=== PATIENT | male | born 1980 | race Caucasian/White ===

== ENCOUNTER 2017-03-08 03:54 | Emergency (ER) | payer BC, OTHER ==
[~2017-03-08] VITALS: Ht 175.3 cm; Wt 76.2 kg
[2017-03-08 03:59] VITALS: Ht 175.3 cm; Wt 76.2 kg
[2017-03-08] MEDS ORDERED: AMOX500T PO (04:12)
[2017-03-08] MEDS ORDERED: CIPRO 0.2%/HYDROCORTISONE 1% OTIC SUSP 10 ML BTL OT SCH (04:15)
[2017-03-08 04:40] VITALS: BP 118/78; PULSE 87; O2SAT 98
--- NOTE | 2017-03-08 04:51 | EMERGENCY ROOM VISIT NOTE ---
History First contact with patient: 04:03 Chief Complaint: EAR PAIN Stated Complaint: EAR INFECTION History of Present Illness The patient is a 36 year old male who presents to the Emergency Room with complaints of right ear infection for the past 2 days. The patient went to an urgent care clinic at the onset of symptoms and was given a prescription for Augmentin. He has been taking this as prescribed, but states that his symptoms worsened tonight. He has not been able to sleep because of his discomfort. He has a white/yellow drainage coming from the ear. He has not had fever or chills , but has been taking ibuprofen and Tylenol at home without significant improvement of symptoms. The patient rates his overall discomfort a 6/10. Review of Systems More than 10 systems were reviewed and otherwise negative with the exception of history of present illness. Past Medical/Surgical History Medical Problems: (1) No Known Active Medical Problems Family History No pertinent family history Social History Smoking Status: Never Smoker Housing Status: lives with family Occupation Status: employed Current/Historical Medications Scheduled Amoxicillin & Pot Clavulanate (Augmentin 500MG), 875 MG PO DIRECTED Physical Exam Vital Signs Date Time Temp Pulse Resp B/P (MAP) Pulse Ox O2 Delivery O2 Flow Rate FiO2 03/08/17 04:40 87 18 118/78 98 03/08/17 03:59 77 18 117/77 98 Room Air Pain Rating (0-10): 0 Physical Exam VITALS: Vitals are noted on the nurse's note and reviewed by myself. Vital signs stable. GENERAL: Well-developed, well-nourished, white male, who is in no acute distress and resting comfortably. Patient is cooperative with the examination. HEAD: Normocephalic atraumatic. EARS: External ear normal. No mastoid tenderness. Left canal and TM appears normal. Right canal is erythematous with whitish drainage and debris in the canal. Right TM is nonvisualized EYES: Pupils equal round and reactive to light and accommodation. Conjunctivae without injection, sclerae without icterus. Extraocular movements intact. NOSE: Patent, turbinates without inflammation or discharge. MOUTH: Mucous membranes moist. Tonsils are not enlarged. Pharynx without erythema, blood, or exudate. Uvula midline. Airway patent. NECK: Supple without nuchal rigidity. No lymphadenopathy. No thyromegaly. Cervical spine is nontender. HEART: Regular rate and rhythm without murmurs gallops or rubs. LUNGS: Clear to auscultation bilaterally without wheezes, rales or rhonchi. No retractions or accessory muscle use. Medical Decision & Procedures ED Course Physical exam and history were performed. Nursing notes, EMR, and Medication List were personally reviewed. Patient appears to have a right otitis externa on examination. The TM was not visualized in this ear. Because of this an ear wick was placed and initial Cipro HC drops were placed. The patient was given a course of this medication to use at home. He is currently on Augmentin for presumed otitis media, and should finish his prescription as prescribed. The patient will need to follow with his PCP for a recheck and was otherwise invited back to the ER with any new , worsening, or concerning symptoms. The chart was completed utilizing [employer] Speech Voice Recognition Software. Grammatical errors, random word insertions, pronoun errors, and incomplete sentences are an occasional consequence of this system due to software limitations, ambient noise, and hardware issues. Any formal questions or concerns about the content, text, or information contained within the body of this dictation should be directly addressed to the provider for clarification. . Medical Decision Differential diagnosis: Etiologies such as viral syndrome, otitis, pharyngitis, pneumonia, influenza, meningitis, urinary tract infection, sepsis, bacteremia, as well as others were entertained. Impression Primary Impression: Right otitis externa Departure Information Dispostion Home / Self-Care Condition GOOD Forms HOME CARE DOCUMENTATION FORM, IMPORTANT VISIT INFORMATION Patient Instructions My [facility] Additional Instructions You were seen and evaluated today on an emergency basis only. This is not a substitute for, or an effort to provide, complete comprehensive medical care. It is not possible to recognize and treat all injuries or illnesses in a single emergency department visit. For this reason it is recommended that you followup with your primary care physician with any ongoing or persistent symptoms. Continue to use your eardrops (Cipro HC): 2 drops in the affected ear twice daily for 7 days For baseline pain relief you may alternate ibuprofen and acetaminophen every 4 hours for pain control. Take 600 mg ibuprofen (Advil) and then 4 hours later take 1000 mg acetaminophen (Tylenol). Do not take more than 3000 mg acetaminophen in a single day. Continue your Augmentin as previously prescribed. You are welcome to return to the emergency department anytime with new, worsening, or concerning symptoms.
== END 2017-03-08 04:42 | disposition home or self-care (01) ==
LOC: C.EDB 03:55
DX: H60.91 Unspecified otitis externa, right ear (principal)

== ENCOUNTER → 2017-07-26 | Day surgery (SDC) | payer BC ==
[2017-07-03 08:00] VITALS: Ht 175.3 cm; Wt 75.0 kg
--- NOTE | 2017-07-25 12:40 | History and Physical: Surg Cnt ---
History & Physical Date Jul 25, 2017. Chief Complaint nasal obstruction and left ear infection and hearing loss, perforation of right ear, adenoid hypertrophy History of Present Illness The patient is a 37 year old male with complaints of deviated septum, left otitis media with effusion, perforation of right ear, adenoid hypertrophy Past Medical/Surgical History Medical Problems: (1) No Known Active Medical Problems Additional History Hepatic Disease: No Endocrine Disorder: No Kidney Disease: No Hypertension: No Heart Disease: No Bleeding Tendencies: No Infectious Diseases: No Allergies Coded Allergies: No Known Allergies (Unverified , 07/03/17) Home Medications No Active Prescriptions or Reported Meds Physical Examination Skin: warm/dry, no rash Eyes: normal inspection, EOMI, sclerae normal ENT: + pertinent finding (septal deviation to left, adenoid hypertrophy, fluid left ear, perforation right ear) Diagnosis septal deviation, chronic otitis media left, adenoid hypertrophy Plan of Treatment septoplasty, Celon turbinates, adenoidectomy, left PE tube
[~2017-07-26] VITALS: Ht 175.3 cm; Wt 75.0 kg
[~2017-07-26] MED LIST: ATROPINE SULFATE 0.1 MG/ML 5ML SYR IV PRN; BACITRACIN OINT 15 GM TUBE ONE; CEFAZOLIN 1000MG IV PUSH 5 ML IV SCH; DEXAMETHASONE SOD INJ 4 MG/ML VIAL ONE; EpINEphrine INJ 1MG/ML AMP 1 MG/ML AMP ONE; FENTANYL CITRATE INJ 50 MCG/1 ML 2 ML VIAL IV PRN; FENTANYL CITRATE INJ 50 MCG/1 ML 2 ML VIAL ONE; GELATIN SPONGE 12-7MM ONE; HYDR-5688 PO; HYDROCODONE/ACETAMOPHEN 5/325MG TAB ONE; HYDROCODONE/ACETAMOPHEN 5/325MG TAB PO PRN; KETOROLAC TROMETHAMINE 30 MG/ML VIAL IV. PRN; LACTATED RINGER'S 1000ML 1,000 ML IV SCH; LIDO 2%/EPINEPHRINE 1:100000 20 ML VIAL INFIL ONE; LIDOCAINE 4% MPF SOAK 5 ML = 1 DOSE TOP ONE; LIDOCAINE HCL 2% 2 ML VIAL (20MG/ML) ONE; MIDAZOLAM HCL 1 MG/ML 2ML VIAL ONE; OFLOXACIN 0.3% OP SOLN 5 ML BTL ONE; ONDANSETRON INJ 2 MG/ML 2 ML VIAL IV PRN; ONDANSETRON INJ 2 MG/ML 2 ML VIAL ONE; PROPOFOL IV EMULSION 10 MG/ML 20 ML VIAL IV ONE; SODIUM CHLORIDE 0.9% 1000ML 1,000 ML IV SCH; TETRACAINE HCL (OPHTH) 60 DROPS/4 ML BTL OP ONE
--- NOTE | 2017-07-26 08:51 | History & Physical Bridge Note ---
H&P Re-Evaluation Bridge Note: I have examined the patient, reviewed the History & Physical and in the interval since the performance of the History & Physical I have noted the following changes of clinical significance: No changes noted
--- NOTE | 2017-07-26 08:53 | Discharge Instructions-SurgCtr ---
Discharge Instructions Date of Service Jul 26, 2017. Visit Reason for Visit: Septal Deviation, Chronic O.m., Left Discharge Discharge Diagnosis / Problem: same Discharge Goals Goal(s): Improve function Activity Recommendations Activity Limitations: resume your previous activity Anesthesia . Post Anesthesia Instructions: If you have had General Anesthesia or IV Sedation: * Do not drive today. * Resume driving when surgeon permits. * Do not make important decisions or sign legal documents today. * Call surgeon for: 1. Temperature elevations greater than 101 degrees F. 2. Uncontrollable pain. 3. Excessive bleeding. 4. Persistent nausea and vomiting. 5. Medication intolerance (nausea, vomiting or rash). * For nausea and vomiting use only clear liquids such as: tea, soda, bouillon until nausea subsides, then gradually increase diet as tolerated. * If you have any concerns or questions, call your surgeon's office. If physician is unavailable and it is an emergency, call 911 or go to the nearest emergency room. . Instructions / Follow-Up Instructions / Follow-Up ACTIVITY RECOMMENDATIONS: * During the first few days, activities should be limited. * After 48 hours, activity can gradually be increased to normal activity. MEDICATIONS: Continue any other previous medications unless otherwise indicated by you surgeon. * Avoid aspirin or aspirin containing products, e.g. as they may increase bleeding. DIET: * No diet restrictions. * Fluids are very important and should be encouraged to maintain adequate hydration. RETURN TO SCHOOL/WORK: * Return to school or work in one week. * No physical education for one week. SPECIAL CARE INSTRUCTIONS: * Notify the doctor if bleeding occurs, vomiting, temperature greater than 101 degrees Fahrenheit. * Call or cell phone . If unable to reach the doctor, go to the nearest Emergency Department. FOLLOW UP VISIT: Follow-up visit with Dr. Munoz in 2 weeks. Please call to schedule if not already scheduled.ACTIVITY RECOMMENDATIONS: * Being up and around is good, but no strenuous activity, heavy lifting or physical exertion for one week. * Keep your head elevated 30 degrees when lying down or sleeping. * Do not blow your nose for 48 hours, sniff back instead. * Avoid hot showers. OVER THE COUNTER MEDICATIONS: * You may use Tylenol * Avoid aspirin or aspirin containing products, e.g. as they may increase bleeding. SPECIAL CARE INSTRUCTIONS: * Expect to have bloody drainage from your nose and/or down your throat for one to three days. Change drip pad as needed. * Begin irrigating your nose with saline solution today, at least six to ten times per day and sniff back to help remove old clots or crust. * You may experience nasal and facial congestion, pain and pressure, this is normal. * Please call with any significant and/or progressive pain, redness, swelling around the eyes, visual changes, fever of 101.5 degrees F, active bleeding or any problems or concerns. * If active bleeding occurs, spray the nose three times at one minute intervals with Afrin spray and call or cell phone: . If unable to reach the doctor, go to the nearest Emergency Department. Special Diet: * Avoid extremely hot fluids. FOLLOW UP VISIT: Follow-up Visit with Dr. Munoz If not already scheduled, please call to schedule.ACTIVITY RECOMMENDATIONS: * Take it easy today. * Return to regular activity tomorrow. OVER THE COUNTER MEDICATIONS: * You may use Tylenol for pain * Avoid aspirin or aspirin containing products, e.g. as they may increase bleeding. DIET: Resume previous diet RETURN TO SCHOOL/WORK: May return to normal activities tomorrow. SPECIAL CARE INSTRUCTIONS: * Drainage is not unusual during the first few days after placement of tubes. The drainage may be bloody. If it is foul smelling or very thick, please notify the doctor. Call or cell phone . * Keep water out of the ears when shampooing or bathing. Use cotton balls covered with Vaseline or "Macks" ear plugs. * Call physician if increased pain, fever over 101 degrees F. or any problems. FOLLOW UP VISIT: Follow-up Visit with Dr. Munoz in 2 weeks. Please call to schedule. Diet Recommendations Home Diet: no limitations Pending Studies Studies pending at discharge: no Medical Emergencies . Who to Call and When: Medical Emergencies: If at any time you feel your situation is an emergency, please call 911 immediately. . Non-Emergent Contact Non-Emergency issues call your: Primary Care Provider . . "Provider Documentation" section prepared by Kiarra PEREZ Drug Monitoring Program Search Results: no issues identified
[2017-07-26 11:14] VITALS: TEMP 36.5
--- NOTE | 2017-07-26 11:19 | OPERATIVE REPORT ---
DATE OF OPERATION: 07/26/2017 PREOPERATIVE DIAGNOSES: Septal deviation, chronic otitis media of the left ear and perforation of the right ear and adenoid hypertrophy. POSTOPERATIVE DIAGNOSIS: Same. PROCEDURE: Septoplasty, radiofrequency volume reduction of the turbinates, adenoidectomy and left PE tube insertion. SURGEON: Kiarra Munoz MD. ANESTHESIA: General LMA. COMPLICATIONS: None. BLOOD LOSS: 25 mL. HISTORY: This 37-year-old gentleman has had persistent hearing loss, persistent effusion of the left ear. He also has septal deviation to the left and was found to have adenoid hypertrophy on endoscopy blocking the eustachian tube. DESCRIPTION OF PROCEDURE: The patient was brought to the operating room and placed in supine position. General anesthesia was induced using LMA, prepped, draped in usual sterile manner. The left ear was visualized, irrigated with peroxide and cleaned of cerumen. Myringotomy incision was made inferiorly. Thick fluid evacuated from the middle ear space and a Paparella tube was inserted. Adenoidectomy was performed using the Coblator. This was done endoscopically using the 0 degree scope visualizing the nasopharynx and using the coblation device with the setting at 7 to coblate out the adenoids. Hemostasis was controlled using the coblation device. At this point, endoscopic septoplasty was performed. The nose was decongested using topical cottonoids with a solution of 4 mL of 4% Xylocaine mixed with 1 mL of epinephrine and injection of 2% Xylocaine, 1:1,000 strength epinephrine was also used. The inferior turbinates were treated with radiofrequency volume reduction using the Celon probe. Four lesions were created in each inferior turbinate with the setting at 18. The septum was deviated to the left with a large bony cartilaginous spur. The incision was made over the spur using the 15 blade. Superior inferior tunnels were elevated, bilateral posterior tunnels were elevated, the bone spur was isolated, fractured and then removed along with the cartilaginous spur projecting to the left which was resected using the 15 blade, the caudal dissector and the Cassandra forceps. Mucoperichondrium was packed back in position with a single piece of Gelfoam on the left side. The patient tolerated the procedure well and was taken to recovery area in satisfactory condition. I attest to the content of the Intraoperative Record and any orders documented therein. Any exception s are noted below.
--- NOTE | 2017-07-26 11:57 | Anesthesia Progress Nt - [facility] ---
Anesthesia Post Op Note Date & Time Jul 26, 2017 at 11:56 Vital Signs Vital Signs Past 12 Hours Date Time Temp Pulse Resp B/P (MAP) Pulse Ox O2 Delivery O2 Flow Rate FiO2 07/26/17 11:16 85 11 97 07/26/17 11:16 84 11 07/26/17 11:15 144/97 07/26/17 11:14 36.5 84 16 144/97 97 Room Air 07/26/17 11:11 79 17 97 07/26/17 11:11 80 17 07/26/17 11:10 138/107 07/26/17 11:06 82 07/26/17 11:06 82 98 07/26/17 11:05 134/94 07/26/17 11:01 83 14 100 07/26/17 11:01 85 14 07/26/17 11:00 135/93 07/26/17 10:56 88 20 07/26/17 10:56 87 20 99 07/26/17 10:55 136/83 07/26/17 10:53 136/80 07/26/17 10:51 97 95 07/26/17 10:51 36.8 86 16 136/80 100 Humidified Oxygen 8 07/26/17 10:51 97 07/26/17 08:40 36.4 77 16 111/56 (74) 98 Room Air Notes Mental Status: alert / awake / arousable, participated in evaluation Pt Amnestic to Procedure: Yes Nausea / Vomiting: adequately controlled Pain: adequately controlled Airway Patency, RR, SpO2: stable & adequate BP & HR: stable & adequate Hydration State: stable & adequate Anesthetic Complications: no major complications apparent
[2017-07-26 11:59] VITALS: BP 130/40; PULSE 83; O2SAT 97
== END | disposition home or self-care (01) ==
LOC: X.SURG 08:30
PROVIDERS: ATTEND Otolaryngology
DX: J34.2 Deviated nasal septum (principal); H66.92 Otitis media, unspecified, left ear; J35.2 Hypertrophy of adenoids; H72.92 Unspecified perforation of tympanic membrane, left ear

== ENCOUNTER 2022-12-28 14:17 | Inpatient (IN) ==
[2022-12-28] MEDS ORDERED: ONDANSETRON INJ 2 MG/ML 2 ML VIAL IV STA ×2 (14:42→16:40)
[2022-12-28] MEDS ORDERED: KETOROLAC TROMETHAMINE 15 MG/ML VIAL IV STA (14:42)
[2022-12-28] MEDS ORDERED: SODIUM CHLORIDE 0.9% 1000ML 1,000 ML IV ONE ×2 (14:42→16:25)
[2022-12-28 15:01] LABS: Appearance Urine Clear (Clear); Bacteria Urine Automated Negative (Negative); Bilirubin Urine 1+ (Negative); Blood Urine 1+ (Negative); Color Urine Dark Yellow; Epithelial Cell Urine Auto 20-30 /lpf (0-5); Glucose Urine UA Negative (Negative); Ketones Urine 1+ (Negative); Leukocyte Esterase Urine Negative (Negative); Nitrite Urine Negative (Negative); Protein Urine 1+ (Negative); RBC Urine Automated 0-4 /hpf (0-4); Specific Gravity Urine > 1.045 (1.000-1.030); Urobilinogen Urine Negative (Negative)
--- NOTE | 2022-12-28 15:02 | Emergency Department Note ---
Impression & Plan Right flank pain, Calculus of distal right ureter, Hydronephrosis, Intractable back pain ED Provider Note CHIEF COMPLAINT: Right-sided back pain HISTORY OF PRESENT ILLNESS: This 42-year-old male patient presents to the emergency department via private vehicle for evaluation of right-sided back pain. This came on approximately 4 hours prior to arrival. The patient states this came on suddenly while he was at work. He thought his symptoms may have been a pulled muscle at first, so took some ibuprofen but the pain has been progressively worsening. He states now, he feels that he is urinating frequently but not very much. He denies any fever. There is some intermittent nausea associated with the pain. No vomiting. No dysuria or hematuria. No recent illness. No diarrhea or constipation patient denies history of similar symptoms. REVIEW OF SYSTEMS: A 10 system review of systems was performed with positives and pertinent negatives listed in the history of present illness. All other systems were reviewed and are negative. ALLERGIES: None PHYSICAL EXAM: VITALS: Vitals are noted on the nurse's note and reviewed by myself. Vital signs stable. GENERAL: This is a 42-year-old, in no acute distress, nondiaphoretic, well- developed well-nourished. SKIN: The skin was without rashes, erythema, edema, or bruising. There is no tenting of the skin. Capillary refill less than 2 seconds. HEAD: Normocephalic atraumatic. EYES: Conjunctivae without injection, sclerae without icterus. MOUTH: Mucous membranes moist. NECK: Supple without nuchal rigidity. No lymphadenopathy. No JVD. HEART: Regular rate and rhythm without murmurs gallops or rubs. LUNGS: Clear to auscultation bilaterally without wheezes, rales or rhonchi. No retractions or accessory muscle use. ABDOMEN: Positive bowel sounds x 4. Soft, nontender, without masses or organomegaly. Lou sign negative. No guarding or rebound tenderness. Right CVA tenderness MUSCULOSKELETAL: No muscle atrophy, erythema, or edema noted. Full range of motion without joint tenderness in all extremities. No tenderness to palpation. Normal gait. Strength 5/5 throughout. NEURO: Patient was alert and oriented to person place and time. No focal neurological deficits. An order was placed for continuous electronic device monitor. The monitor showed a normal sinus rhythm at a ventricular rate of 96 bpm, per my interpretation. EMERGENCY DEPARTMENT COURSE: The patient was seen and evaluated as above. IV access obtained, labs drawn. Pt. medicated with IV fluids, toradol, zofran. CT imaging performed and shows 2cm distal ureteral stone with hydronephrosis on the right side, per my interpretation. Pt. continued to c/o severe pain and was medicated with IV acetaminophen. He continued to c/o intractable pain, noting no improvement with the previous medications, and was medicated with 4mg Morphine and Zofran, followed by 6mg Morphine about an hour later. Pt. did desat to 88% after this dose of pain medication and was placed on 2L o2 via NC. Pt. re- evaluated and notes pain is more manageable, but continuing to experience nausea and vomiting. He does not feel he will be able to manage his symptoms as an outpatient and will prefer to stay in the hospital. I discussed the case with my attending physician. I discussed the case with the authorization manager. I discussed the case with Dr. Perdomo, [facility] hospitalist cork insulation setter. He did agree to see and evaluate the patient for admission. Please see hospitalist dictation regarding ongoing management and care of this patient. Differential diagnosis includes musculoskeletal, renal colic, UTI, appendicitis, diverticulitis, mesenteric ischemia, aortic pathology, infections, inflammatory bowel disease, PUD, biliary pathology, as well as other pathologies. I attest that I have personally reviewed the patient's current medication list. Patient was found to have normal blood pressure on screening and does not require follow-up. The chart was completed utilizing [employer] Speech voice recognition software. Grammatical errors, random word insertions, pronoun errors, and incomplete sentences are an occasional consequence of this system due to software limitations, ambient noise, and hardware issues. Any formal questions or concerns about the content, text, or information contained within the body of this dictation should be directly addressed to the provider for clarification. Past Med/Surg History Medical History No pertinent past medical history Surgical History Hx of tympanostomy Family History Grandfather Colorectal cancer Social History Smoking Status: Never smoker Hx Alcohol Use: No Hx Substance Use: No Preferred Language: Wallisian Feels Safe at Home: Yes Allergies Allergies Allergy/AdvReac Type Severity Reaction Status Date / Time No Known Allergies Allergy Verified 12/28/22 16:20 Home Meds Home Medications Medication Instructions Recorded Confirmed ibuprofen 200 mg tablet (Advil) 400 mg PO DIRECTED PRN 12/28/22 12/28/22 PAIN/FEVER Results & Data (ED) Vital Signs Vital Signs - 24 hr 12/28/22 14:21 12/28/22 16:47 12/28/22 16:47 Temperature 36.5 C Temperature Source Temporal Artery Scan Pulse Rate 83 Pulse Rate [Finger] 87 Pulse Rate from SpO2 Sensor Respiratory Rate 18 20 Respiratory Effort / Characteristics Non-Labored Non-Labored Spontaneous Respiratory Depth Normal Normal Respiratory Pattern Regular Regular Blood Pressure 130/75 Blood Pressure [Left Arm] 106/83 Blood Pressure Mean 93 Blood Pressure Mean [Left Arm] 90 Pulse Oximetry 99 100 100 Oxygen Delivery Method Room Air Room Air Room Air Oxygen Flow Rate Sepsis Recent Fever Within 48 Hours No Sepsis New/Unexplained Change in Mental Status N/A Sepsis Action Taken by Nursing No Action Required 12/28/22 17:38 12/28/22 18:03 12/28/22 18:02 Temperature Temperature Source Pulse Rate 87 87 Pulse Rate [Finger] 87 Pulse Rate from SpO2 Sensor 86 Respiratory Rate 18 11 L Respiratory Effort / Characteristics Respiratory Depth Normal Respiratory Pattern Blood Pressure Blood Pressure [Left Arm] 126/79 Blood Pressure Mean Blood Pressure Mean [Left Arm] 94 Pulse Oximetry 96 87 L Oxygen Delivery Method Room Air Oxygen Flow Rate Sepsis Recent Fever Within 48 Hours Sepsis New/Unexplained Change in Mental Status Sepsis Action Taken by Nursing 12/28/22 18:10 12/28/22 18:20 12/28/22 18:30 Temperature Temperature Source Pulse Rate 72 96 H Pulse Rate [Finger] Pulse Rate from SpO2 Sensor 70 92 H Respiratory Rate 9 L 22 Respiratory Effort / Characteristics Respiratory Depth Respiratory Pattern Blood Pressure 108/57 L Blood Pressure [Left Arm] Blood Pressure Mean 74 Blood Pressure Mean [Left Arm] Pulse Oximetry 98 97 Oxygen Delivery Method Nasal Cannula Oxygen Flow Rate 2 Sepsis Recent Fever Within 48 Hours Sepsis New/Unexplained Change in Mental Status Sepsis Action Taken by Nursing 12/28/22 18:30 12/28/22 18:40 12/28/22 18:50 Temperature Temperature Source Pulse Rate 93 H 92 H 89 Pulse Rate [Finger] Pulse Rate from SpO2 Sensor 97 H 92 H 88 Respiratory Rate 12 17 16 Respiratory Effort / Characteristics Respiratory Depth Respiratory Pattern Blood Pressure Blood Pressure [Left Arm] Blood Pressure Mean Blood Pressure Mean [Left Arm] Pulse Oximetry 99 97 98 Oxygen Delivery Method Oxygen Flow Rate Sepsis Recent Fever Within 48 Hours Sepsis New/Unexplained Change in Mental Status Sepsis Action Taken by Nursing 12/28/22 19:00 12/28/22 19:00 12/28/22 19:10 Temperature Temperature Source Pulse Rate 98 H 86 Pulse Rate [Finger] Pulse Rate from SpO2 Sensor 95 H 86 Respiratory Rate 20 14 Respiratory Effort / Characteristics Respiratory Depth Respiratory Pattern Blood Pressure 130/80 Blood Pressure [Left Arm] Blood Pressure Mean 96 Blood Pressure Mean [Left Arm] Pulse Oximetry 99 96 Oxygen Delivery Method Oxygen Flow Rate Sepsis Recent Fever Within 48 Hours Sepsis New/Unexplained Change in Mental Status Sepsis Action Taken by Nursing 12/28/22 19:20 12/28/22 19:30 12/28/22 19:40 Temperature Temperature Source Pulse Rate 91 H 90 96 H Pulse Rate [Finger] Pulse Rate from SpO2 Sensor 92 H 89 94 H Respiratory Rate 17 14 16 Respiratory Effort / Characteristics Respiratory Depth Respiratory Pattern Blood Pressure Blood Pressure [Left Arm] Blood Pressure Mean Blood Pressure Mean [Left Arm] Pulse Oximetry 99 98 99 Oxygen Delivery Method Room Air Oxygen Flow Rate Sepsis Recent Fever Within 48 Hours Sepsis New/Unexplained Change in Mental Status Sepsis Action Taken by Nursing Laboratory Data 12/28/22 14:35 12/28/22 14:35 Lab Results 12/28/22 12/28/22 12/28/22 Range/Units 14:30 14:35 14:35 WBC 9.70 (4.8-10.8) K/ul RBC 5.03 (4.70-6.10) M/uL Hgb 15.2 (14.0-18.0) g/dl Hct 43.0 (42.0-52.0) % MCV 85.5 (80.0-100.0) fL MCH 30.2 (25.0-34.0) pg MCHC 35.3 (32.0-36.0) g/dL RDW Std Deviation 39.1 (36.4-46.3) fL RDW Coeff of Leeanne 12.6 (11.5-14.5) % Plt Count 317 (130-400) K/uL MPV 12.1 (9.4-12.4) fL Immature Gran % (Auto) 0.4 % Neut % (Auto) 57.3 % Lymph % (Auto) 28.9 % Eddy % (Auto) 9.9 % Eos % (Auto) 2.8 % Baso % (Auto) 0.7 % Neut # (Auto) 5.56 (1.40-6.50) K/uL Lymph # (Auto) 2.80 (1.2-3.4) K/uL Eddy # (Auto) 0.96 H (0.11-0.59) K/uL Eos # (Auto) 0.27 (0-0.50) K/uL Baso # (Auto) 0.07 (0-0.2) K/uL Immature Gran # (Auto) 0.04 (0.01-0.20) K/uL Sodium 140 (136-145) mmol/L Potassium 4.0 (3.5-5.1) mmol/L Chloride 107 (98-107) mmol/L Carbon Dioxide 23 (21-32) mmol/L Anion Gap 10 (3-11) BUN 22 (6-23) mg/dl Creatinine 1.19 (0.6-1.4) mg/dl Est Cr Clr Drug Dosing 78.4 ml/min Est GFR ( Amer) 88.0 ml/min Est GFR (Non-Af Amer) 76.0 ml/min BUN/Creatinine Ratio 18.5 (10-20) Glucose 101 H (70-99(Fasting)) mg/dl Calcium 9.7 (8.6-10.3) mg/dl Total Bilirubin 1.8 H (0.2-1.0) mg/dl AST 24 (13-39) U/L ALT 31 (7-52) U/L Alkaline Phosphatase 79 (34-104) U/L Total Protein 7.7 (6.0-8.3) gm/dl Albumin 5.0 (3.4-5.0) gm/dl Globulin 2.7 (2.5-4.0) gm/dl Albumin/Globulin Ratio 1.9 (0.9-2) Lipase 20 (11-82) U/L Urine Color Dark Yellow Urine Appearance Clear (Clear) Urine pH 5.0 (4.5-7.5) Ur Specific [place] > 1.045 H (1.000-1.030) Urine Protein 1+ H (Negative) Urine Glucose (UA) Negative (Negative) Urine Ketones 1+ H (Negative) Urine Blood 1+ H (Negative) Urine Nitrite Negative (Negative) Urine Bilirubin 1+ H (Negative) Urine Urobilinogen Negative (Negative) Ur Leukocyte Esterase Negative (Negative) Urine WBC (Auto) 1-5 (0-5) /hpf Urine RBC (Auto) 0-4 (0-4) /hpf U Hyaline Cast (Auto) 10-30 H (0-5) /lpf U Epithel Cells (Auto) 20-30 H (0-5) /lpf Urine Bacteria (Auto) Negative (Negative) SARS-CoV-2, RNA, NAAT (NEGATIVE) 12/28/22 Range/Units 18:55 WBC (4.8-10.8) K/ul RBC (4.70-6.10) M/uL Hgb (14.0-18.0) g/dl Hct (42.0-52.0) % MCV (80.0-100.0) fL MCH (25.0-34.0) pg MCHC (32.0-36.0) g/dL RDW Std Deviation (36.4-46.3) fL RDW Coeff of Leeanne (11.5-14.5) % Plt Count (130-400) K/uL MPV (9.4-12.4) fL Immature Gran % (Auto) % Neut % (Auto) % Lymph % (Auto) % Eddy % (Auto) % Eos % (Auto) % Baso % (Auto) % Neut # (Auto) (1.40-6.50) K/uL Lymph # (Auto) (1.2-3.4) K/uL Eddy # (Auto) (0.11-0.59) K/uL Eos # (Auto) (0-0.50) K/uL Baso # (Auto) (0-0.2) K/uL Immature Gran # (Auto) (0.01-0.20) K/uL Sodium (136-145) mmol/L Potassium (3.5-5.1) mmol/L Chloride (98-107) mmol/L Carbon Dioxide (21-32) mmol/L Anion Gap (3-11) BUN (6-23) mg/dl Creatinine (0.6-1.4) mg/dl Est Cr Clr Drug Dosing ml/min Est GFR ( Amer) ml/min Est GFR (Non-Af Amer) ml/min BUN/Creatinine Ratio (10-20) Glucose (70-99(Fasting)) mg/dl Calcium (8.6-10.3) mg/dl Total Bilirubin (0.2-1.0) mg/dl AST (13-39) U/L ALT (7-52) U/L Alkaline Phosphatase (34-104) U/L Total Protein (6.0-8.3) gm/dl Albumin (3.4-5.0) gm/dl Globulin (2.5-4.0) gm/dl Albumin/Globulin Ratio (0.9-2) Lipase (11-82) U/L Urine Color Urine Appearance (Clear) Urine pH (4.5-7.5) Ur Specific [place] (1.000-1.030) Urine Protein (Negative) Urine Glucose (UA) (Negative) Urine Ketones (Negative) Urine Blood (Negative) Urine Nitrite (Negative) Urine Bilirubin (Negative) Urine Urobilinogen (Negative) Ur Leukocyte Esterase (Negative) Urine WBC (Auto) (0-5) /hpf Urine RBC (Auto) (0-4) /hpf U Hyaline Cast (Auto) (0-5) /lpf U Epithel Cells (Auto) (0-5) /lpf Urine Bacteria (Auto) (Negative) SARS-CoV-2, RNA, NAAT NEGATIVE (NEGATIVE) Administered Medications Lactated Ringer's (Lr) 1,000 mls @ 100 mls/hr IV .Q10H ONE Stop: 12/29/22 05:12 Last Admin: 12/28/22 19:36 Dose: 100 mls/hr Documented By: KENRICK Discontinued Medications Sodium Chloride (Nss 1000ml) 1,000 mls @ 999 mls/hr IV .Q1H1M ONE Stop: 12/28/22 15:42 Last Infusion: 12/28/22 16:00 Dose: 0 mls/hr Documented By: Admin: 12/28/22 14:47 Dose: 999 mls/hr Documented By: ANDREZ Acetaminophen (Ofirmev) 1,000 mg in 100 mls @ 400 mls/hr IV NOW STA Stop: 12/28/22 15:57 Last Infusion: 12/28/22 16:48 Dose: 0 mls/hr Documented By: Admin: 12/28/22 15:56 Dose: 400 mls/hr Documented By: KENRICK Sodium Chloride (Nss 1000ml) 1,000 mls @ 999 mls/hr IV .Q1H1M ONE Stop: 12/28/22 17:25 Last Infusion: 12/28/22 19:37 Dose: 0 mls/hr Documented By: Admin: 12/28/22 16:36 Dose: 999 mls/hr Documented By: KENRICK Ketorolac Tromethamine (Ketorolac Tromethamine 15 Mg/Ml Vial) 15 mg IV NOW STA Stop: 12/28/22 14:43 Last Admin: 12/28/22 14:46 Dose: 15 mg Documented By: ANDREZ Morphine Sulfate (Morphine Sulfate 4 Mg/Ml 1 Ml Carp\Vial) 4 mg IV NOW STA Stop: 12/28/22 16:26 Last Admin: 12/28/22 16:43 Dose: 4 mg Documented By: KENRICK Morphine Sulfate (Morphine Sulfate 10 Mg/Ml Carp/Vial) 6 mg IV NOW STA Stop: 12/28/22 17:41 Last Admin: 12/28/22 17:49 Dose: 6 mg Documented By: KENRICK Ondansetron HCl (Ondansetron Inj 2 Mg/Ml 2 Ml Vial) 4 mg IV NOW STA Stop: 12/28/22 14:43 Last Admin: 12/28/22 14:47 Dose: 4 mg Documented By: ANDREZ Ondansetron HCl (Ondansetron Inj 2 Mg/Ml 2 Ml Vial) 4 mg IV NOW STA Stop: 12/28/22 16:41 Last Admin: 12/28/22 16:42 Dose: 4 mg Documented By: KENRICK Tamsulosin HCl (Tamsulosin Hcl 0.4 Mg Cap) 0.4 mg PO NOW ONE Stop: 12/28/22 16:26 Last Admin: 12/28/22 17:50 Dose: 0.4 mg Documented By: KENRICK Imaging Data Radiologist's Impression: Abdomen/Pelvis CT 12/28/22 14:[address] WITHOUT CONTRAST CT DOSE: 832.21 mGy.cm HISTORY: right flank pain TECHNIQUE: Multiaxial CT images of the abdomen and pelvis were performed without contrast. A dose lowering technique was utilized adhering to the principles of ALARA. COMPARISON STUDY: None. FINDINGS: The lung bases are clear. No pneumoperitoneum. No pneumatosis. No acute fractures identified. Tiny fat-containing umbilical hernia. Mild hepatic steatosis. The unenhanced gallbladder, pancreas, spleen, and adrenal glands unremarkable. There are 2 punctate stones within the left kidney. No right renal calculi. No left-sided hydronephrosis. There is mild right hydroureteronephrosis secondary to an obstructing 2 mm stone within the distal right ureter on image 293. The bladder is completely decompressed. No retroperitoneal or pelvic lymphadenopathy. Normal caliber abdominal aorta. No pelvic free fluid. Suboptimal evaluation for bowel pathology due to the lack of intravenous and oral contrast. However, there is no definite bowel wall thickening or obstruction. Normal appendix. IMPRESSION: 1. A 2 mm obstructing stone within the distal right ureter resulting in mild right hydroureteronephrosis. 2. Left-sided nephrolithiasis. 3. Normal appendix. 4. Mild hepatic steatosis. ACT 112: Negative or not required by law. Electronically signed by: Paul Sargent M.D. 12/28/2022 3:17 PM Discharge Plan Visit Data Chief Complaint: Back Injury/Pain Stated Complaint: BACK PAIN, VOMITING ED Provider: Lamberto Nicholas ED Midlevel Provider: Felisa Perkins Discharge Problem: Right flank pain, Calculus of distal right ureter, Hydronephrosis, Intractable back pain Patient Disposition: Admitted As Inpatient Condition: Good Forms Stand Alone Forms: [facility], [facility] Emergency Department, Important Visit Information Prescriptions Prescriptions: No Action ibuprofen [Advil] 200 mg Tablet 400 mg PO DIRECTED PRN (Reason: PAIN/FEVER) Referrals Referrals: James Swan MD [Primary Care Provider] -
--- NOTE | 2022-12-28 15:19 | CT Scan Report ---
ABDOMEN AND PELVIS CT WITHOUT CONTRAST CT DOSE: 832.21 mGy.cm HISTORY: right flank pain TECHNIQUE: Multiaxial CT images of the abdomen and pelvis were performed without contrast. A dose lo wering technique was utilized adhering to the principles of ALARA. COMPARISON STUDY: None. FINDINGS: The lung bases are clear. No pneumoperitoneum. No pneumatosis. No acute fractures identifie d. Tiny fat-containing umbilical hernia. Mild hepatic steatosis. The unenhanced gallbladder, pancreas , spleen, and adrenal glands unremarkable. There are 2 punctate stones within the left kidney. No rig ht renal calculi. No left-sided hydronephrosis. There is mild right hydroureteronephrosis secondary t o an obstructing 2 mm stone within the distal right ureter on image 293. The bladder is completely de compressed. No retroperitoneal or pelvic lymphadenopathy. Normal caliber abdominal aorta. No pelvic f ree fluid. Suboptimal evaluation for bowel pathology due to the lack of intravenous and oral contrast . However, there is no definite bowel wall thickening or obstruction. Normal appendix. IMPRESSION: 1. A 2 mm obstructing stone within the distal right ureter resulting in mild right hydroureteronephro sis. 2. Left-sided nephrolithiasis. 3. Normal appendix. 4. Mild hepatic steatosis. ACT 112: Negative or not required by law. Electronically signed by: Paul Sargent M.D. 12/28/2022 3:17 PM
[2022-12-28 15:23] LABS: Basophils # (auto) 0.07 K/uL (0-0.2); Basophils % (auto) 0.7 %; Eosinophils # (auto) 0.27 K/uL (0-0.50); Eosinophils % (auto) 2.8 %; Hemoglobin 15.2 g/dl (14.0-18.0); Immature Granulocytes # (auto) 0.04 K/uL (0.01-0.20); Immature Granulocytes % (auto) 0.4 %; Lymphocytes % (auto) 28.9 %; Mean Corpuscular Hemoglobin 30.2 pg (25.0-34.0); Mean Corpuscular Hgb Conc 35.3 g/dL (32.0-36.0); Mean Corpuscular Volume 85.5 fL (80.0-100.0); Mean Platelet Volume 12.1 fL (9.4-12.4); Monocytes # (auto) 0.96 K/uL (0.11-0.59); Monocytes % (auto) 9.9 %; Neutrophils # (auto) 5.56 K/uL (1.40-6.50); Neutrophils % (auto) 57.3 %; Platelet Count 317 K/uL (130-400); RDW Coefficient of Variation 12.6 % (11.5-14.5); RDW Standard Deviation 39.1 fL (36.4-46.3); Red Blood Count 5.03 M/uL (4.70-6.10)
[2022-12-28 15:29] LABS: Albumin Globulin Ratio 1.9 (0.9-2); BUN Creatinine Ratio 18.5 (10-20); Bilirubin,Total 1.8 mg/dl (0.2-1.0); Calcium 9.7 mg/dl (8.6-10.3); Creatinine Clr Calc Pharmacy 78.4 ml/min; Globulin 2.7 gm/dl (2.5-4.0); Total Protein 7.7 gm/dl (6.0-8.3)
[2022-12-28] MEDS ORDERED: ACETAMINOPHEN 1,000 MG/100 ML VIAL IV STA (15:43)
[2022-12-28] MEDS ORDERED: MoRPHine SULFATE 4 MG/ML 1 ML CARP\\VIAL IV STA (16:25)
[2022-12-28] MEDS ORDERED: TAMSULOSIN HCL 0.4 MG CAP PO ONE (16:25)
[2022-12-28] MEDS ORDERED: MoRPHine SULFATE 10 MG/ML CARP/VIAL IV STA (17:40)
[2022-12-28] MEDS ORDERED: PROMETHAZINE HCL 6.25 MG in SODIUM CHLORIDE 0.9% 50 ML IV PRN (19:13)
[2022-12-28] MEDS ORDERED: ACETAMINOPHEN 325 MG TAB PO PRN (19:13)
[2022-12-28] MEDS ORDERED: oxyCODONE HCL IR 5 MG TAB (IMMEDIATE RELEASE) PO PRN (19:13)
[2022-12-28] MEDS ORDERED: LACTATED RINGER'S 1,000 ML IV ONE (19:13)
[2022-12-28] MEDS ORDERED: KETOROLAC TROMETHAMINE 15 MG/ML VIAL IV PRN (19:13)
--- NOTE | 2022-12-28 19:25 | History & Physical Report ---
Date of Service December 28, 2022 Assessment & Plan (1) Right flank pain: (2) Calculus of distal right ureter: (3) Hydronephrosis: Plan: 42 yr old M being managed for R distal ureteral calculus: R flank pain Calculus of distal right ureter Mild hydronephrosis Pt admitted with Dr. Perdomo, please refer to his addendum for full details regarding assessment and treatment plan. History of Present Illness Chief Complaint: Right sided back pain x 6 hours. Primary Care Provider: James Swan MD This is a 42 yr old M who has no significant PMH who presents to ED 2/2 right sided back pain x 6 hours. The pain started abruptly while at working at home. He tried ibuprofen with out relief. Initially thought maybe muscular but progressively worsened. He further complains of nausea and decreased urinary frequency. He also had vomiting associated with pain, last emesis was ~ 1h ago. He denies f/c/s, chest pain, sob, cough, uri sx, dysuria, hematuria, diarrhea or hematochezia. He has never had similar sx in the past. +FH of stones.\ In ED CT a/p revealed 2mm distal ureteral calculus with mild hydronephrosis. He received numerous rounds of analgesia while in ED along with IVF and flomax. Unfortunately pain is intractable and requires admission to hospital. Allergies Allergy/AdvReac Type Severity Reaction Status Date / Time No Known Allergies Allergy Verified 12/28/22 16:20 Home Medications Medication Instructions Recorded Confirmed Type ibuprofen 200 mg tablet (Advil) 400 mg PO DIRECTED PRN 12/28/22 12/28/22 History PAIN/FEVER Past Med/Surg History Medical History No pertinent past medical history Surgical History Hx of tympanostomy Family History Grandfather Colorectal cancer Social History Smoking Status: Never smoker Hx Alcohol Use: No Hx Substance Use: No Preferred Language: Romanian Feels Safe at Home: Yes Review of Systems Review of Systems: All systems reviewed & are unremarkable except as noted in HPI & below Physical Exam Physical Exam: Constitutional: WD/WN, vitals as above, NAD, sitting up in bed, pleasant, conversing easily Head: Normocephalic, Atraumatic Eyes: PERRL, conjunctivae normal, anicteric sclerae ENMT: external ear and nose normal, oropharynx normal Neck: trachea midline, no thyromegaly normal visual inspection Respiratory: normal respiratory effort, lungs clear to auscultation, no wheeze, rales, rhonchi. Normal insp/exp effort, no accessory muscle use Cardiovascular: RRR, no murmur, no edema Vessels: no JVD or carotid bruit Chest: normal inspection of chest Abdomen: normal bowel sounds, soft, nontender, no hepatosplenomegaly Musculoskeletal: no cyanosis or clubbing, extremities motor strength 5/5 Skin: no rashes, warm and dry normal turgor Neurologic: PERRL, EOMI, accommodation nl, no face palsy, no dysarthria CN's II-XI intact bilaterally and moves all extremities Psychiatric: A+Ox3, euthymic affect Lymphatic: no cervical or axillary lymphadenopathy : deferred Results & Data Results & Data Vital Signs (Past 12 Hours) Vital Signs Temp Pulse Pulse Resp BP BP Pulse Ox 12/28/22 18:20 96 H 22 97 12/28/22 18:10 72 9 L 98 12/28/22 18:02 87 11 L 87 L 12/28/22 18:03 87 12/28/22 17:38 87 18 126/79 96 12/28/22 16:47 100 12/28/22 16:47 87 20 106/83 100 12/28/22 14:21 36.5 C 83 18 130/75 99 O2 Del Method O2 Flow Rate 12/28/22 18:20 12/28/22 18:10 Nasal Cannula 2 12/28/22 18:02 12/28/22 18:03 12/28/22 17:38 Room Air 12/28/22 16:47 Room Air 12/28/22 16:47 Room Air 12/28/22 14:21 Room Air Diagnostic Findings Abdomen/Pelvis CT 12/28/22 14:[address] WITHOUT CONTRAST CT DOSE: 832.21 mGy.cm HISTORY: right flank pain TECHNIQUE: Multiaxial CT images of the abdomen and pelvis were performed without contrast. A dose lowering technique was utilized adhering to the principles of ALARA. COMPARISON STUDY: None. FINDINGS: The lung bases are clear. No pneumoperitoneum. No pneumatosis. No acute fractures identified. Tiny fat-containing umbilical hernia. Mild hepatic steatosis. The unenhanced gallbladder, pancreas, spleen, and adrenal glands unremarkable. There are 2 punctate stones within the left kidney. No right renal calculi. No left-sided hydronephrosis. There is mild right hydroureteronephrosis secondary to an obstructing 2 mm stone within the distal right ureter on image 293. The bladder is completely decompressed. No retroperitoneal or pelvic lymphadenopathy. Normal caliber abdominal aorta. No pelvic free fluid. Suboptimal evaluation for bowel pathology due to the lack of intravenous and oral contrast. However, there is no definite bowel wall thickening or obstruction. Normal appendix. IMPRESSION: 1. A 2 mm obstructing stone within the distal right ureter resulting in mild right hydroureteronephrosis. 2. Left-sided nephrolithiasis. 3. Normal appendix. 4. Mild hepatic steatosis. ACT 112: Negative or not required by law. Electronically signed by: Paul Sargent M.D. 12/28/2022 3:17 PM Medications Administered Medication List Discontinued Medications Sodium Chloride (Nss 1000ml) 1,000 mls @ 999 mls/hr IV .Q1H1M ONE Stop: 12/28/22 15:42 Last Infusion: 12/28/22 16:00 Dose: 0 mls/hr Documented By: Admin: 12/28/22 14:47 Dose: 999 mls/hr Documented By: ANDREZ Acetaminophen (Ofirmev) 1,000 mg in 100 mls @ 400 mls/hr IV NOW STA Stop: 12/28/22 15:57 Last Infusion: 12/28/22 16:48 Dose: 0 mls/hr Documented By: Admin: 12/28/22 15:56 Dose: 400 mls/hr Documented By: KENRICK Sodium Chloride (Nss 1000ml) 1,000 mls @ 999 mls/hr IV .Q1H1M ONE Stop: 12/28/22 17:25 Last Admin: 12/28/22 16:36 Dose: 999 mls/hr Documented By: KENRICK Ketorolac Tromethamine (Ketorolac Tromethamine 15 Mg/Ml Vial) 15 mg IV NOW STA Stop: 12/28/22 14:43 Last Admin: 12/28/22 14:46 Dose: 15 mg Documented By: ANDREZ Morphine Sulfate (Morphine Sulfate 4 Mg/Ml 1 Ml Carp\Vial) 4 mg IV NOW STA Stop: 12/28/22 16:26 Last Admin: 12/28/22 16:43 Dose: 4 mg Documented By: KENRICK Morphine Sulfate (Morphine Sulfate 10 Mg/Ml Carp/Vial) 6 mg IV NOW STA Stop: 12/28/22 17:41 Last Admin: 12/28/22 17:49 Dose: 6 mg Documented By: KENRICK Ondansetron HCl (Ondansetron Inj 2 Mg/Ml 2 Ml Vial) 4 mg IV NOW STA Stop: 12/28/22 14:43 Last Admin: 12/28/22 14:47 Dose: 4 mg Documented By: ANDREZ Ondansetron HCl (Ondansetron Inj 2 Mg/Ml 2 Ml Vial) 4 mg IV NOW STA Stop: 12/28/22 16:41 Last Admin: 12/28/22 16:42 Dose: 4 mg Documented By: KENRICK Tamsulosin HCl (Tamsulosin Hcl 0.4 Mg Cap) 0.4 mg PO NOW ONE Stop: 12/28/22 16:26 Last Admin: 12/28/22 17:50 Dose: 0.4 mg Documented By: KENRICK COVID-19 Results Results COVID-19 Adm Lab Results: RBC 5.03 M/uL (4.70-6.10) 12/28/22 WBC 9.70 K/ul (4.8-10.8) 12/28/22 Hgb 15.2 g/dl (14.0-18.0) 12/28/22 Hct 43.0 % (42.0-52.0) 12/28/22 Plt Count 317 K/uL (130-400) 12/28/22 Neutrophils (%) (Auto) 57.3 % 12/28/22 Lymphocytes (%) (Auto) 28.9 % 12/28/22 Monocytes # (Auto) 0.96 K/uL (0.11-0.59) H 12/28/22 Eosinophils # (Auto) 0.27 K/uL (0-0.50) 12/28/22 Immature Granulocyte % (Auto) 0.4 % 12/28/22 Neutrophils # (Auto) 5.56 K/uL (1.40-6.50) 12/28/22 Lymphocytes # (Auto) 2.80 K/uL (1.2-3.4) 12/28/22 Monocytes # (Auto) 0.96 K/uL (0.11-0.59) H 12/28/22 Eosinophils # (Auto) 0.27 K/uL (0-0.50) 12/28/22 Basophils # (Auto) 0.07 K/uL (0-0.2) 12/28/22 Immature Granulocyte # (Auto) 0.04 K/uL (0.01-0.20) 3 Na 140 mmol/L (136-145) 12/28/22 K 4.0 mmol/L (3.5-5.1) 12/28/22 Cl 107 mmol/L (98-107) 12/28/22 CO2 23 mmol/L (21-32) 12/28/22 Anion Gap 10 (3-11) 12/28/22 BUN 22 mg/dl (6-23) 12/28/22 Creatinine 1.19 mg/dl (0.6-1.4) 12/28/22 BUN/Creatinine Ratio 18.5 (10-20) 12/28/22 Glucose Level 101 mg/dl (70-99(Fasting)) H 12/28/22 Ca 9.7 mg/dl (8.6-10.3) 12/28/22 Total Bilirubin 1.8 mg/dl (0.2-1.0) H 12/28/22 AST/SGOT 24 U/L (13-39) 12/28/22 ALT/SGPT 31 U/L (7-52) 12/28/22 Alkaline Phosphatase 79 U/L (34-104) 12/28/22 Total Protein 7.7 gm/dl (6.0-8.3) 12/28/22 Albumin 5.0 gm/dl (3.4-5.0) 12/28/22 Globulin 2.7 gm/dl (2.5-4.0) 12/28/22 Albumin/Globulin Ratio 1.9 (0.9-2) 12/28/22 SARS-CoV-2, RNA, NAAT NEGATIVE (NEGATIVE) 12/28/22 Code Status & VTE Plan Code Status FULL CODE
[2022-12-28] MEDS ORDERED: PROMETHAZINE 12.5 MG/50.5 ML NSS IV ONE (20:19)
--- NOTE | 2022-12-28 20:34 | History & Physical Report ---
Date of Service December 28, 2022 Assessment & Plan (1) Calculus of distal right ureter: Plan: 42yo male without significant PMH presents with a one-day history of severe right-sided back pain, nausea, and vomiting, suspected secondary to an obstructing right-sided nephrolithiasis with hydronephrosis. Nephrolithiasis, hydroureteronephrosis, right flank pain, nausea, vomiting Symptoms and imaging consistent with obstructing nephrolithiasis with hydroureteronephrosis CT a/p: 2mm obstructing stone within the distal right ureter resulting in mild right hydroureteronephrosis; left-sided nephrolithiasis; mild hepatic steatosis No leukocytosis, low suspicion for infected stone Urology consulted LR @ 125mL/hr (x3 bags ordered) Pain control: APAP 1000mg IV q8h scheduled Toradol 15mg IV q6h scheduled Morphine 2mg q2h IV prn severe (7+/10) pain - may need to be escalated Nausea control: zofran 4mg IV q4h prn; can add phenergan if needed Continue tamsulosin NPO pending possible procedure Trend CBC, kidney function Hyperbilirubinemia Tbili on admission elevated to 1.8 in the absence of other transaminitis 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 - pain started around noon today; was immediately debilitating - associated with nausea, has vomited ~6 times - has never had similar symptoms before, no personal history of kidney stones - positive family history of nephrolithiasis Patient denies fever, chills, headache, vision changes, CP, palpitations, SOB, edema, hematochezia, melena, dizziness, numbness, tingling, weakness, or other symptoms. Denies recent illness and recent travel. Upon arrival, vitals were relatively unremarkable; BP controlled, no tachycardia, no tachypnea, patient afebrile, spO2 adequate on room air. However, while in the ED, after receiving 10mg morphine, patient had a brief episode of desaturation to 87 which improved on 2L NC; spO2 has since normalized on room air. Initial labs were notable for 1+ protein and 1+ blood in urine, and for an isolated elevated Tbili (1.8); patient is without leukocytosis or anemia, platelets wnl, no electrolyte abnormalities, creatinine not elevated, LFTs wnl, covid PCR negative. In the ED, patient received IVF, tamsulosin, APAP, toradol, morphine, zofran, and phenergan. CT a/p: 2mm obstructing stone within the distal right ureter resulting in mild right hydroureteronephrosis; left-sided nephrolithiasis; mild hepatic steatosis Surrogate decision-maker in case of an emergency: Yojana Santamaria (cell: [phone]) Allergies Allergy/AdvReac Type Severity Reaction Status Date / Time No Known Allergies Allergy Verified 12/28/22 16:20 Home Medications Medication Instructions Recorded Confirmed Type ibuprofen 200 mg tablet (Advil) 400 mg PO DIRECTED PRN 12/28/22 12/28/22 History PAIN/FEVER oxycodone 5 mg tablet 5 - 10 mg PO Q6H PRN pain #20 tabs 12/29/22 Rx tamsulosin 0.4 mg capsule (Flomax) 0.4 mg PO HS #14 caps 12/29/22 Rx Past Med/Surg History Medical History No pertinent past medical history Surgical History Hx of tympanostomy Family History Grandfather Colorectal cancer Social History Smoking Status: Never smoker Hx Alcohol Use: Yes Alcohol type: beer Hx Substance Use: No Preferred Language: Mohawk Communication 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 Beliefs That Will Affect Care: None Current Living Situation: Spouse Feels Safe at Home: Yes Safety Concerns: Feels Safe At This Time Assistive Devices: None Review of Systems Review of Systems: See HPI Physical Exam Physical Exam: Constitutional: uncomfortable-appearing, no acute distress CV: regular rhythm, no murmur appreciated, extremities well-perfused, no LE edema Resp: CTABL, no wheezes/rales/rhonchi appreciated, no increased work of breathing GI: soft, nondistended, nontender MSK: right-sided flank tenderness appreciated Skin: warm, dry, no rash appreciated Neuro: alert, oriented, no focal neurologic deficit appreciated Results & Data Results & Data Vital Signs (Past 12 Hours) Vital Signs Temp Pulse Pulse Resp BP BP Pulse Ox 12/28/22 19:40 96 H 16 99 12/28/22 19:30 90 14 98 12/28/22 19:20 91 H 17 99 12/28/22 19:10 86 14 96 12/28/22 19:00 98 H 20 99 12/28/22 19:00 130/80 12/28/22 18:50 89 16 98 12/28/22 18:40 92 H 17 97 12/28/22 18:30 93 H 12 99 12/28/22 18:30 108/57 L 12/28/22 18:20 96 H 22 97 12/28/22 18:10 72 9 L 98 12/28/22 18:02 87 11 L 87 L 12/28/22 18:03 87 12/28/22 17:38 87 18 126/79 96 12/28/22 16:47 100 12/28/22 16:47 87 20 106/83 100 12/28/22 14:21 36.5 C 83 18 130/75 99 O2 Del Method O2 Flow Rate 12/28/22 19:40 Room Air 12/28/22 19:30 12/28/22 19:20 12/28/22 19:10 12/28/22 19:00 12/28/22 19:00 12/28/22 18:50 12/28/22 18:40 12/28/22 18:30 12/28/22 18:30 12/28/22 18:20 12/28/22 18:10 Nasal Cannula 2 12/28/22 18:02 12/28/22 18:03 12/28/22 17:38 Room Air 12/28/22 16:47 Room Air 12/28/22 16:47 Room Air 12/28/22 14:21 Room Air Supervising Physician Co-Signing Physician Notes Attending addendum: I have physically seen this patient, have supervised the medical residents activities, and agree with the H&P unless as otherwise noted. Assessment and Plan: 2 mm distal right ureteral stone/mild right hydroureteronephrosis- Follow urine culture and sensitivity N.p.o. after midnight Empiric ceftriaxone 2 g IV daily Acetaminophen 1000 mg IV every 8 hours Toradol 15 mg IV every 6 hours Morphine sulfate 2 mg IV every 2 hours as needed moderate to severe pain Zofran 4 mg IV every 4 hours as needed Tamsulosin 0.4 mg at bedtime Follow serial CBC with differential and renal profile Hyperbilirubinemia- Typical of [place] syndrome Fatty liver noted on CT Remaining orders and notations as noted Resident Activity Tracking Resident Involvement: Resident Care Provided Care Provided: Adult [facility] Medicine
[2022-12-28] MEDS ORDERED: MoRPHine SULFATE 2 MG/ML CARP IV STA (20:35)
[2022-12-28] MEDS ORDERED: ONDANSETRON INJ 2 MG/ML 2 ML VIAL IV PRN (20:47)
--- NOTE | 2022-12-28 21:02 | Surgery Consultation ---
Date of Consultation December 28, 2022 Assessment & Plan (1) Calculus of distal right ureter: The patient has been admitted on the hospitalist service. We have been asked to see the patient secondary to his kidney stone noted on CT scan. We recommend proceeding as follows: Provide analgesics Provide antiemetics Provide IV fluid for hydration The patient has been provided Flomax for expulsive therapy. Would recommend continuous medication Recommend straining urine. If any kidney stones are passed they can be sent for analysis. Implement n.p.o. status At the present time the patient is noted to be normotensive without tachycardia. He is also afebrile without leukocytosis and does not have l aboratory evidence of acute kidney injury; due to this information and the fact the patient has a 2 mm kidney stone a trial of conservative passage is reasonable. Patient will be reevaluated in the morning and if he has not passed a stone consideration can be given to performing a cystoscopy Additional recommendations were forthcoming based on his clinical course as it unfolds History of Present Illness History of Present Illness This is a 42-year-old male who presented to the emergency department at [facility] secondary to right-sided flank pain. The patient says that the pain began at approximately lunchtime on 12/28/2022. He has never had pain like this before. He describes the pain in his right flank with radiation across the the right lower quadrant of his abdomen into his right groin. He has had associated nausea and vomiting but denies any fevers, shakes, or chills. Patient does not report any provocative factors and the only palliative factors he notes were medicines administered in the emergency department patient says he has been able to urinate without difficulty and specifically denies any dysuria or known hematuria. He denies any prior history of kidney stones in the past. Since arrival to the emergency department the patient has had labs and imaging which I independently reviewed. CBC revealed white blood cell count, hemoglobin, hematocrit, and platelet count were all within the normal range. Chemistry profile showed sodium, potassium, BUN, and creatinine were all normal. Urinalysis was not indicative of infection. A COVID test was negative. Patient also underwent a CT scan of the abdomen and pelvis that showed a 2 mm obstructing kidney stone within the distal right ureter resulting in mild right hydroureteronephrosis. I question the patient on his activities of daily living and the patient says he leads an active lifestyle sometimes performing strenuous activities at work. He notes that he can easily negotiate steps and inclines and can walk 1 mile on a flat surface easily without chest pain or shortness of breath limiting these activities. The patient reports that he is a lifetime non-smoker. He also denies any family history of premature coronary artery disease At the time of the interview the patient was in no distress but he noted he had continued flank pain and continued nausea and vomiting Allergies Allergy/AdvReac Type Severity Reaction Status Date / Time No Known Allergies Allergy Verified 12/28/22 16:20 Home Medications Medication Instructions Recorded Confirmed Type ibuprofen 200 mg tablet (Advil) 400 mg PO DIRECTED PRN 12/28/22 12/28/22 History PAIN/FEVER Patient History Medical History No pertinent past medical history Surgical History Hx of tympanostomy Family History Grandfather Colorectal cancer Social History Smoking Status: Never smoker Hx Alcohol Use: Yes Alcohol type: beer Hx Substance Use: No Preferred Language: Danish 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 Beliefs That Will Affect Care: None Current Living Situation: Spouse Feels Safe at Home: Yes Safety Concerns: Feels Safe At This Time Assistive Devices: None Review of Systems Constitutional: no fever and no chills Ear, Nose, Mouth, Throat: no hearing loss Respiratory: no cough and no dyspnea Cardiovascular: no chest pain Gastrointestinal: + abdominal pain (Radiating from right flank), + nausea and + vomiting Genitourinary: + as per Subjective / HPI Musculoskeletal: no back pain Integumentary: no rash Neurologic: no localized weakness Physical Exam Constitutional: WD/WN, vitals as above Eyes: no conjunctival abnormality ENMT: Ears: no hearing impairment and no external ear abnormality Mouth: no oropharynx abnormality Neck: trachea midline Respiratory: normal respiratory effort, lungs clear to auscultation Cardiovascular: Rate/Rhythm: regular rate and regular rhythm Vessels: dorsalis pedis pulses present and radial pulses present Gastrointestinal (Abdomen): Abdomen soft, nondistended, nonrigid, with minor pain to palpation in the right lower quadrant. There is no rebound tenderness or guarding Musculoskeletal: No calf tenderness. Feet are warm and well-perfused Skin: no rashes Neurologic: moves all extremities Psychiatric: A+Ox3, euthymic affect Genitourinary: + CVA tenderness (CVA tenderness noted on the right with percussion. No CVA tenderness on th) Results & Data Vital Signs (Past 12 Hours) Vital Signs Temp Pulse Pulse Resp BP BP Pulse Ox 12/28/22 20:30 83 22 96 12/28/22 20:30 137/83 12/28/22 20:20 92 H 13 96 12/28/22 20:10 89 14 99 12/28/22 20:00 89 19 99 12/28/22 20:00 123/84 12/28/22 19:50 87 11 L 99 12/28/22 19:40 96 H 16 99 12/28/22 19:30 90 14 98 12/28/22 19:20 91 H 17 99 12/28/22 19:10 86 14 96 12/28/22 19:00 98 H 20 99 12/28/22 19:00 130/80 12/28/22 18:50 89 16 98 12/28/22 18:40 92 H 17 97 12/28/22 18:30 93 H 12 99 12/28/22 18:30 108/57 L 12/28/22 18:20 96 H 22 97 12/28/22 18:10 72 9 L 98 12/28/22 18:02 87 11 L 87 L 12/28/22 18:03 87 12/28/22 17:38 87 18 126/79 96 12/28/22 16:47 100 12/28/22 16:47 87 20 106/83 100 12/28/22 14:21 36.5 C 83 18 130/75 99 O2 Del Method O2 Flow Rate 12/28/22 20:30 12/28/22 20:30 12/28/22 20:20 12/28/22 20:10 12/28/22 20:00 12/28/22 20:00 12/28/22 19:50 12/28/22 19:40 Room Air 12/28/22 19:30 12/28/22 19:20 12/28/22 19:10 12/28/22 19:00 12/28/22 19:00 12/28/22 18:50 12/28/22 18:40 12/28/22 18:30 12/28/22 18:30 12/28/22 18:20 12/28/22 18:10 Nasal Cannula 2 12/28/22 18:02 12/28/22 18:03 12/28/22 17:38 Room Air 12/28/22 16:47 Room Air 12/28/22 16:47 Room Air 12/28/22 14:21 Room Air PG Care Time/CCT Total # of Minutes Spent Total Time Spent with Patient: Total time spent is greater than 50% in coordination of care (as documented) at patient's floor/unit and/or counseling patient: Coding Level of Care Code 28339 IN/OBS CONSULT LVL 5,80M Diagnoses Calculus of distal right ureter N20.1
[2022-12-28] MEDS: KETOROLAC TROMETHAMINE 15 MG/ML VIAL IV SCH (21:19)
[2022-12-28] MEDS ORDERED: Nursing to Pharmacy Communication SCH (21:30)
[2022-12-28] MEDS: LACTATED RINGER'S 1,000 ML IV SCH (21:31)
[2022-12-28] MEDS ORDERED: MoRPHine SULFATE 2 MG/ML CARP IV PRN (22:00)
[2022-12-28] MEDS: ACETAMINOPHEN 1000 MG/100 ML IV IV SCH (23:33)
[2022-12-29] MEDS: KETOROLAC TROMETHAMINE 15 MG/ML VIAL IV SCH ×2 (02:37→08:20)
[2022-12-29] MEDS: LACTATED RINGER'S 1,000 ML IV SCH ×2 (05:09→11:18)
[2022-12-29 07:48] LABS: Hematocrit (blood only) 38.7 % (42.0-52.0); Hemoglobin 12.8 g/dl (14.0-18.0); Mean Corpuscular Hemoglobin 29.3 pg (25.0-34.0); Mean Corpuscular Hgb Conc 33.1 g/dL (32.0-36.0); Mean Corpuscular Volume 88.6 fL (80.0-100.0); Platelet Count 235 K/uL (130-400); RDW Coefficient of Variation 12.8 % (11.5-14.5); RDW Standard Deviation 41.7 fL (36.4-46.3); Red Blood Count 4.37 M/uL (4.70-6.10); White Blood Count 12.87 K/ul (4.8-10.8)
[2022-12-29 07:53] VITALS: PULSE 70; TEMP 98.2; O2SAT 95
[2022-12-29 08:16] LABS: Albumin Globulin Ratio 1.9 (0.9-2); Albumin Level 3.6 gm/dl (3.4-5.0); BUN Creatinine Ratio 14.2 (10-20); Bilirubin,Total 1.8 mg/dl (0.2-1.0); Calcium 7.7 mg/dl (8.6-10.3); Creatinine Clr Calc Pharmacy 63.4 ml/min; Est GFR (Non-African American) 55.2 ml/min; Globulin 1.9 gm/dl (2.5-4.0); Potassium 3.8 mmol/L (3.5-5.1); Total Protein 5.5 gm/dl (6.0-8.3)
[2022-12-29] MEDS: ACETAMINOPHEN 1000 MG/100 ML IV IV SCH (08:20)
[2022-12-29] MEDS ORDERED: TAMSULOSIN HCL 0.4 MG CAP PO SCH (09:00)
--- NOTE | 2022-12-29 12:03 | XRay Report ---
KUB HISTORY: eval movement of R ureteral stone COMPARISON: Abdomen and pelvis CT 12/28/2012. FINDINGS: The bowel gas pattern is unremarkable. There are no dilated loops of small bowel to suggest an obstruction. The patient's known 2 mm distal right ureteral stone is not clearly identified on t his study. This may be obscured by overlying bowel gas or passed in the interval. Punctate calcificat ions within the left deep pelvis remain stable and are consistent with phleboliths. Stable punctate l eft renal calculi again noted. No pneumoperitoneum or pneumatosis. IMPRESSION: 1. The patient's known 2 mm distal right ureteral stone is not clearly identified on this study. This may be obscured by overlying bowel gas or passed in the interval. 2. Stable punctate left renal calculi again noted. ACT 112: Negative or not required by law. Electronically signed by: Paul Sargent M.D. 12/29/2022 12:02 PM
--- NOTE | 2022-12-29 12:53 | Urology Progress Note ---
Date of Service December 29, 2022 Assessment & Plan (1) Calculus of distal right ureter: Plan: -Follow-up of 2 mm distal right ureteral stone. -Afebrile, hemodynamically stable. -Lab show- creatinine 1.55, WBC 12.87, Hgb 12.8. -KUB today does not visualize 2 mm distal right ureteral stone. -He is currently comfortable, but denies stone passage. We discussed that his stone has a good probability of passing given size and location. Discussed options for stone management including trial of passage vs surgical intervention with ureteroscopy, laser lithotripsy, and stent placement. Discussed outpatient surgical options including ESWL or ureteroscopy. Procedures, success rates, risks, benefits and clinical courses reviewed. Stone free rates were also discussed as well as possibility of multiple procedures. Ureteral stents were discussed as well as post-operative issues and pain management. After discussion, he elects trial of passage. Okay to discharge to home from standpoint. Recommend discharge with tamsulosin and prn analgesia. Strain all urine. Will arrange outpatient follow-up with urology. Admission and Anticipated Discharge Date Admission Date: December 28, 2022 Subjective Patient seen and examined at bedside. He is awake and resting in bed. He is currently comfortable. Denies flank or abdominal pain at present. Denies stone passage. No nausea or vomiting. No fever or chills. He is voiding without difficulty. Denies dysuria or hematuria. Review of Systems Constitutional: as per Subjective / HPI Gastrointestinal: as per Subjective / HPI Genitourinary: + as per Subjective / HPI Physical Exam Constitutional: well developed and well nourished; no acute distress and not ill appearing Neck: normal visual inspection Respiratory: normal respiratory effort and able to speak in complete sentences; no respiratory distress and no labored breathing Gastrointestinal (Abdomen): Inspection/Auscultation: abdomen normal to inspection; abdomen not distended Neurologic: moves all extremities and awake Psychiatric: Orientation: alert and oriented x 3 Results & Data Vital Signs (Past 12 Hours) Vital Signs Temp Pulse Resp BP Pulse Ox O2 Del Method 12/29/22 07:52 36.8 C 70 16 104/67 95 Room Air PG Care Time/CCT Total # of Minutes Spent Total Time Spent with Patient: Total time spent is greater than 50% in coordination of care (as documented) at patient's floor/unit and/or counseling patient: Coding Level of Care Code 90761 SUB INP/OBS CARE 09/13MIN Diagnoses Calculus of distal right ureter N20.1
[2022-12-29 14:20] VITALS: BP 115/56
--- NOTE | 2022-12-29 17:34 | Discharge Summary ---
Date of Service December 29, 2022 Admission HPI Per Admitting Provider 42yo male without significant PMH presents with a one-day history of severe right-sided back pain, nausea, and vomiting. - pain started around noon today; was immediately debilitating - associated with nausea, has vomited ~6 times - has never had similar symptoms before, no personal history of kidney stones - positive family history of nephrolithiasis Patient denies fever, chills, headache, vision changes, CP, palpitations, SOB, edema, hematochezia, melena, dizziness, numbness, tingling, weakness, or other symptoms. Denies recent illness and recent travel. Upon arrival, vitals were relatively unremarkable; BP controlled, no tachycardia, no tachypnea, patient afebrile, spO2 adequate on room air. However, while in the ED, after receiving 10mg morphine, patient had a brief episode of desaturation to 87 which improved on 2L NC; spO2 has since normalized on room air. Initial labs were notable for 1+ protein and 1+ blood in urine, and for an isolated elevated Tbili (1.8); patient is without leukocytosis or anemia, platelets wnl, no electrolyte abnormalities, creatinine not elevated, LFTs wnl, covid PCR negative. In the ED, patient received IVF, tamsulosin, APAP, toradol, morphine, zofran, and phenergan. CT a/p: 2mm obstructing stone within the distal right ureter resulting in mild right hydroureteronephrosis; left-sided nephrolithiasis; mild hepatic steatosis Surrogate decision-maker in case of an emergency: Yojana Santamaria (cell: [phone]) Principal Diagnosis right renal colic Discharge Exam pt is awake and alert, has no further pain, abdomen is soft and n on tender Discharge Data Allergies Allergy/AdvReac Type Severity Reaction Status Date / Time No Known Allergies Allergy Verified 12/28/22 16:20 Consultations 12/28/22 19:11 ED Decision to Admit Stat 12/28/22 20:41 Consult Urology Routine discussed treatment options with the patient and the patient wishes for conservative treatment we will go home on Flomax and pain control with follow-up with urology in the office Procedures Performed Abdomen/Pelvis CT 12/28/22 14:[address] WITHOUT CONTRAST CT DOSE: 832.21 mGy.cm HISTORY: right flank pain TECHNIQUE: Multiaxial CT images of the abdomen and pelvis were performed without contrast. A dose lowering technique was utilized adhering to the principles of ALARA. COMPARISON STUDY: None. FINDINGS: The lung bases are clear. No pneumoperitoneum. No pneumatosis. No acute fractures identified. Tiny fat-containing umbilical hernia. Mild hepatic steatosis. The unenhanced gallbladder, pancreas, spleen, and adrenal glands unremarkable. There are 2 punctate stones within the left kidney. No right renal calculi. No left-sided hydronephrosis. There is mild right hydroureteronephrosis secondary to an obstructing 2 mm stone within the distal right ureter on image 293. The bladder is completely decompressed. No retroperitoneal or pelvic lymphadenopathy. Normal caliber abdominal aorta. No pelvic free fluid. Suboptimal evaluation for bowel pathology due to the lack of intravenous and oral contrast. However, there is no definite bowel wall thickening or obstruction. Normal appendix. IMPRESSION: 1. A 2 mm obstructing stone within the distal right ureter resulting in mild right hydroureteronephrosis. 2. Left-sided nephrolithiasis. 3. Normal appendix. 4. Mild hepatic steatosis. ACT 112: Negative or not required by law. Electronically signed by: Paul Sargent M.D. 12/28/2022 3:17 PM KUB X-Ray 12/29/22 11:09 KUB HISTORY: eval movement of R ureteral stone COMPARISON: Abdomen and pelvis CT 12/28/2012. FINDINGS: The bowel gas pattern is unremarkable. There are no dilated loops of small bowel to suggest an obstruction. The patient's known 2 mm distal right ureteral stone is not clearly identified on this study. This may be obscured by overlying bowel gas or passed in the interval. Punctate calcifications within the left deep pelvis remain stable and are consistent with phleboliths. Stable punctate left renal calculi again noted. No pneumoperitoneum or pneumatosis. IMPRESSION: 1. The patient's known 2 mm distal right ureteral stone is not clearly identified on this study. This may be obscured by overlying bowel gas or passed in the interval. 2. Stable punctate left renal calculi again noted. ACT 112: Negative or not required by law. Electronically signed by: Paul Sargent M.D. 12/29/2022 12:02 PM Ordered Studies 12/28/22 14:42 CT abd pelvis wo con Stat Hospital Course (1) Calculus of distal right ureter: -Follow-up of 2 mm distal right ureteral stone. -Afebrile, hemodynamically stable. - -KUB today does not visualize 2 mm distal right ureteral stone. -He is currently comfortable, but denies stone passage. We will continue to strain urine at home and force fluids We discussed that his stone has a good probability of passing given size and location. Urology discussed options for stone management including trial of passage vs surgical intervention with ureteroscopy, laser lithotripsy, and stent placement. After discussion, he elects trial of passage. Okay to discharge to home from standpoint. Recommend discharge with tamsulosin and prn analgesia. Strain all urine. Will arrange outpatient follow-up with urology. Total Time Total Time Spent Total Time Spent (In Minutes): It required greater than 30 minutes to prepare this patient for discharge inc luding 2 visits with the patient and his Discharge Plan Discharge Items Patient Disposition: Home - Self-Care Reason For Visit: NEPHOLITHIASIS, HYDRONEPHROSIS Discharge Diagnosis: renal colic right sided 2mm ureteral stone Condition on Discharge: Good Activity: Per Instructions section Activity Comment: do not drive or operate machinery on pain medication Non-emergency contact: Primary Care Provider and Urologist Call non-emergency contact if: your symptoms worsen Follow-up/Referrals: Philip Taylor [Primary Care Provider] - Lyle Yost MD [Physician] - (JODIE FROM [facility] STATES SHE WILL CALL THE PATIENT WITH A HOSPITAL FOLLOW UP VISIT) Diet: Regular Diet Comment: plenty of liquids Addtl Attending Provider Instructions: You been diagnosed with a kidney stone that should pass on its own. At times these do not and will need intervention by urology team. At home he can drink plenty of liquids you may use Tylenol and ibuprofen for pain if these do not help you can use oxycodone that was prescribed to you. Take Flomax every night this would not be a lifelong prescription but only a short-term prescription If you have any fevers or chills start having bloody urine please return back to the emergency department If you have any nonurgent questions please contact urology office Pending Studies at Discharge: No Stand-Alone Forms: My [email or web address], Pain - Opioid Pain Management, Smoking Cessation Medications and DC Order Prescriptions: New tamsulosin [Flomax] 0.4 mg capsule 0.4 mg PO HS Qty: 14 0RF oxycodone 5 mg tablet 5 - 10 mg PO Q6H PRN (Reason: pain) Qty: 20 0RF Continued ibuprofen [Advil] 200 mg Tablet 400 mg PO DIRECTED PRN (Reason: PAIN/FEVER) Discharge Orders: Discharge Order (Routine); Ordered 12/29/22 Ordered By: Tank Guerra/Other Patient Handouts: Understanding Kidney Stones Admission Data Admit Date/Time: 12/28/22 20:54 Attending Provider: Tank Sherman Admit Provider: Romaine Nguyen Primary Care Provider: Philip Taylor Other Providers: Demetrius Glasgow ; Lyle Yost Other Interventions: Discharge Summary Assessment (RN) Last Done: 12/29/22 14:19 Coding Level of Care Code 61638 INP/OBS DISCH >30 MIN Diagnoses Calculus of distal right ureter N20.1
--- NOTE | 2022-12-29 23:18 | Billing Data ---
Date of Service December 29, 2022 Coding Level of Care Code 82439 INT INP/OBS CARE
== END 2022-12-29 14:50 | disposition home or self-care (01) | DRG 694 ==
LOC: ED 14:17 → 3W 20:54 → SUATTDRO 20:54 → 3W 21:53